=== PATIENT | female | born 1980 | race Caucasian/White ===

== ENCOUNTER 2020-12-17 14:46 | Outpatient (REF) | payer MEDICAID, SELFPAY ==
[2020-12-17 15:04] LABS: COVID-19 Test Positive (Negative); IDNOW Serial# 55D5AD1C
== END 2020-12-17 14:47 | disposition home or self-care (01) ==
LOC: HO.LAB 14:46
PROVIDERS: Visit Provider Internal Medicine
DX: Z20.822 Contact with and (suspected) exposure to COVID-19 (principal)
CPT/HCPCS: 36415; 87635; C9803

== ENCOUNTER 2021-06-06 14:54 | Emergency (ER) | payer MEDICAID, SELFPAY ==
[2021-06-06 15:04] VITALS: BP 120/80; PULSE 84
[2021-06-06 15:06] VITALS: BP 120/56; PULSE 79; RESP 18; TEMP 37.1; O2SAT 99; BMI 26.2
--- NOTE | 2021-06-06 15:18 | ED.RECABL ---
HPI - Recheck/Abnormal Lab/Rx General Chief Complaint: Recheck/Abnormal Lab/Rx Stated Complaint: abnornal labs Time Seen by Provider: 06/06/21 15:03 Related Data Allergies Allergy/AdvReac Type Severity Reaction Status Date / Time ibuprofen [IBUPROFEN] Allergy Mild VOMITING Unverified 05/06/20 16:57 [facility] Social History Social History Advance Directives: No Advance Directives Information Provided: Yes Physical Exam Vital Signs: Vital Signs: Last Vital Signs Temp 98.2 F 06/06/21 20:27 Pulse 62 06/06/21 20:27 Resp 16 06/06/21 20:27 BP 120/73 06/06/21 20:27 Pulse Ox 100 06/06/21 20:27 Body Mass Index 26.2 Course Course Course Narrative: 1515-This is a rapid medical exam. Patient tells me she had labs drawn Sunday by PCP because she has had body aches, chest pain, body swelling , SOB. Called today d/t abnormal labs but unsure what they were. Will call patient PCP Dior Rod and obtain labs as they are not in our system. Deferred additional HPI, ROS and PE to primary provider. MDM - Recheck/Abnormal Lab/Rx Lab Data Result diagrams: 06/06/21 16:23 06/06/21 16:23 Labs: Lab Results 06/06/21 06/06/21 06/06/21 Range/Units 16:23 16:23 16:23 WBC 10.9 H (4.8-10.8) X10*3/uL RBC 3.96 L (4.20-5.50) X10*6/uL Hgb 11.5 L (12.0-16.0) g/dl Hct 34.6 L (37-47) % MCV 87.4 (80-98) fL MCH 29.0 (27.0-33.0) pg MCHC 33.2 (31.0-35.0) g/dl RDW 12.7 (11.0-16.0) % Plt Count 386 (160-400) X10*3/uL MPV 11.1 (9.4-12.3) fL Immature Gran % (Auto) 0.7 H (0.0-0.4) % Neut % (Auto) 62.7 (45-73) % Lymph % (Auto) 26.2 (20-40) % [place] % (Auto) 6.1 (2-11) % Eos % (Auto) 3.9 (0-4) % Baso % (Auto) 0.4 (0-2) % Lymph # (Auto) 2.9 (1.2-4.9) X10*3/uL [place] # (Auto) 0.7 (0.1-1.2) X10*3/uL Eos # (Auto) 0.4 (0.0-0.4) X10*3/uL Baso # (Auto) 0.0 (0.0-0.2) X10*3/uL Abs Immat Gran (auto) 0.08 H (0.00-0.03) X10*3/uL Absolute Neuts (auto) 6.9 (2.0-8.3) X10*3/uL Absolute Nucleated RBC 0.000 (0.0-0.012) X10*3/uL Nucleated RBC % (auto) 0.0 (0.0-0.2) /100WBC Sodium 137 (135-145) mmol/L Potassium 4.4 (3.3-5.1) mmol/L Chloride 105 (96-108) mmol/L Carbon Dioxide 24 (22-29) mmol/L Anion Gap 12 (12-20) BUN 10 (9-16) mg/dL Creatinine 0.69 (0.5-1.4) mg/dL Estim Creat Clear Calc 85.5 Estimated GFR > 60 Random Glucose 92 (60-115) mg/dL Calcium 9.3 (8.4-10.2) mg/dL Total Bilirubin 0.2 (0.0-1.0) mg/dL Direct Bilirubin < 0.2 (0.0-0.5) mg/dL AST 33 H (5-31) U/L ALT 65 H (0-31) U/L Alkaline Phosphatase 74 (39-117) U/L Total Creatine Kinase 65 (26-140) U/L Troponin I High Sens < 3.5 (<3.5-17.0) ng/L B-Natriuretic Peptide 168 H (<100) pg/mL Total Protein 6.6 (6.5-8.0) g/dL Albumin 3.9 (3.5-5.0) g/dL Discharge Plan Discharge Clinical Impression: Abnormal laboratory test Patient Disposition: Home, Self-Care Instructions: Normal Exam (ED) Additional Instructions: Fue evaluado por valor de laboratorio anormal. Probamos santoro CBC, Chem 7, paneles hep?ticos y BNP. Keke valores de laboratorio son relativamente normales. Santoro H&H 11.5 / 34.6, que es anemia leve y bourgeois sido cr?debbie desde 2019, y santoro BNP fue 168. El valor normal es 100. No pude encontrar kacy?n valor de laboratorio anormal significativo. Natalie un seguimiento con santoro m?dico de atenci?n primaria para realizar m?s estudios. Samantha por elegir dana departamento de emergencias para santoro evaluaci?n. Natalie un seguimiento con santoro m?dico de atenci?n primaria seg?n sea necesario. Regrese al departamento de emergencias por cualquier s?ntoma nuevo, preocupante o que empeore. You were evaluated for abnormal lab value. We tested your CBC, Chem 7, liver panels, and BNP. Your lab values are relatively normal. Your H&H 11.5/34.6 which is mild anemia and has been chronic since 2019, and her BNP was 168. Normal value is 100. I could not find any significant abnormal lab value. Please follow-up with your primary care physician for further workup Thank you for choosing this emergency department for evaluation. Please follow-up with primary care physician as needed. Return to the emergency department for any new, concerning, or worsening symptoms. Stand Alone Forms: Work/School Release Discharge Date/Time: 06/06/21 21:12
--- NOTE | 2021-06-06 15:20 | PC.NURSE ---
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 Also endorses loss of taste, states had negative COVID test
--- NOTE | 2021-06-06 15:22 | ECG_ITS ---
Test Reason : ABNORMAL/RECHECK Blood Pressure : / mmHG Vent. Rate : 065 BPM Atrial Rate : 065 BPM P-R Int : 166 ms QRS Dur : 080 ms QT Int : 388 ms P-R-T Axes : 023 060 062 degrees QTc Int : 403 ms Normal sinus rhythm Early repolarization Normal ECG Sinus Arrhythmia is no longer Present Referred By: Sola Marmolejo Electronically Signed By:SAMEERA CARMONA MD
[2021-06-06 16:37] LABS: MANUAL DIFF FLAG NO
[2021-06-06 16:41] LABS: Basophils Percent Auto 0.4 % (0-2); Eosinophils Absolute Auto 0.4 X10*3/uL (0.0-0.4); Eosinophils Percent Auto 3.9 % (0-4); Hematocrit 34.6 % (37-47); Hemoglobin 11.5 g/dl (12.0-16.0); Imm Gran Abs Auto 0.08 X10*3/uL (0.00-0.03); Imm Gran Pct Auto 0.7 % (0.0-0.4); Lymphocytes Absolute Auto 2.9 X10*3/uL (1.2-4.9); Lymphocytes Percent Auto 26.2 % (20-40); Mean Corpuscular HGB Conc 33.2 g/dl (31.0-35.0); Mean Corpuscular Volume 87.4 fL (80-98); Mean Platelet Volume 11.1 fL (9.4-12.3); Monocytes Absolute Auto 0.7 X10*3/uL (0.1-1.2); Monocytes Percent Auto 6.1 % (2-11); Neutrophils Absolute Auto 6.9 X10*3/uL (2.0-8.3); Neutrophils Percent Auto 62.7 % (45-73); Platelet Count 386 X10*3/uL (160-400); Red Blood Count 3.96 X10*6/uL (4.20-5.50); Red Cell Distribution Width 12.7 % (11.0-16.0); White Blood Count 10.9 X10*3/uL (4.8-10.8)
[2021-06-06 16:53] LABS: Alanine Aminotransferase 65 U/L (0-31); Albumin Level 3.9 g/dL (3.5-5.0); Alkaline Phosphatase 74 U/L (39-117); Anion Gap 12 (12-20); Aspartate Amino Transferase 33 U/L (5-31); Bilirubin Direct < 0.2 mg/dL (0.0-0.5); Bilirubin Total 0.2 mg/dL (0.0-1.0); Blood Urea Nitrogen 10 mg/dL (9-16); Calcium 9.3 mg/dL (8.4-10.2); Carbon Dioxide 24 mmol/L (22-29); Chloride 105 mmol/L (96-108); Creatinine Clr Calc Pharmacy 85.5; Estimated Glomerular Filt Rate > 60; Glucose Random 92 mg/dL (60-115); Potassium 4.4 mmol/L (3.3-5.1); Sodium 137 mmol/L (135-145); Total Protein 6.6 g/dL (6.5-8.0)
[2021-06-06 16:58] LABS: B Type Natriuretic Peptide 168 pg/mL (<100); Troponin-I High Sensitivity < 3.5 ng/L (<3.5-17.0)
--- NOTE | 2021-06-06 20:02 | ED_ITS ---
HPI - Recheck/Abnormal Lab/Rx General Chief Complaint: Recheck/Abnormal Lab/Rx Stated Complaint: abnornal labs Time Seen by Provider: 06/06/21 15:03 Source: patient Mode of arrival: ambulatory Limitations: language barrier History of Present Illness HPI narrative: 40-year-old female presents to emergency department for an abnormal lab value. Her primary care physician called and updated her that 1 of her lab values is abnormal, but she does not know which 1 it is. complaint: abnormal lab Returns today for: called because of abnormal lab/test Symptoms since prior visit: no new symptoms Context: called for abnormal lab result Associated symptoms: none Related Data Allergies Allergy/AdvReac Type Severity Reaction Status Date / Time ibuprofen [IBUPROFEN] Allergy Mild VOMITING Unverified 05/06/20 16:57 Review of Systems Review of Systems: Constitutional: No Fever, No Chills ENT/Mouth: No Ear Pain, No Hoarseness, No sore throat Eyes: No Eye Pain, No Swelling, No Redness, No Foreign Body Cardiovascular: No Chest Pain, No SOB Respiratory: No Cough, No Dyspnea Gastrointestinal: No Nausea, No Vomiting, No Diarrhea, No abdominal Pain Genitourinary: No Dysuria, No Hematuria Musculoskeletal: No joint pain, No Myalgias, No Joint Swelling Skin: No Skin lacerations, No rash Neuro: No Weakness, No Numbness, No Paresthesias, No Loss of Consciousness, No Dizziness, No Headache Psych: No Anxiety/Panic, No Depression Heme/Lymph: no easy bruising, no Lymphadenopathy Endocrine: No Polyuria, No Polydipsia Yes all other systems are reviewed and are negative [facility] Past Medical History Attestation statement: The following information was validated with the patient. Source: old records reviewed Social History Social History Advance Directives: No Advance Directives Information Provided: Yes Physical Exam Vital Signs: Vital Signs: Last Vital Signs Temp 98.2 F 06/06/21 20:27 Pulse 62 06/06/21 20:27 Resp 16 06/06/21 20:27 BP 120/73 06/06/21 20:27 Pulse Ox 100 06/06/21 20:27 Body Mass Index 26.2 Appearance: Alert. Oriented X3. No acute distress. Eyes: Pupils equal, round and reactive to light. ENT: Pharynx normal. Neck: Normal inspection. Neck supple. CVS: Normal heart rate and rhythm. Pulses normal. Respiratory: No respiratory distress. Breath sounds normal. Abdomen: Soft and nontender. Skin: Skin warm and dry. Normal skin color. Normal skin turgor. Extremities: No lower extremity edema. Gait well balanced well coordinated. Neuro: No motor deficit. No sensory deficit. Cranial nerves 2-12 intact. Course Course Course Narrative: 40-year-old female presented for an unknown abnormal lab value. She was called by her primary care physician to present to the emergency department. While patient was in the emergency department waiting room we ran CBC, Chem 7, EKG, troponin, LFTs, creatine kinase, and BNP. All other lab values were unremarkable. She does have an H&H of 11.5/34.6 which has been chronic since 2019. BNP is 168, she has no edema and lung sounds are clear. Does not appear to be in fluid overload. AST minimally elevated at 33, ALT at 65. No indication of pancreatitis or acute abdomen on physical exam. Patient states to feel well. No complaints at this time. Will discharge home. Patient understands she must follow-up with her primary care physician for further workup. 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 Will translate utilized for discharge instructions. Patient verbalized understanding of and agrees to plan of care discharge home MDM - Recheck/Abnormal Lab/Rx MDM Narrative Medical decision making narrative: Encounter for abnormal lab value Medical Records Attestation: I reviewed the patient's medical records. Lab Data Attestation: I reviewed the patient's lab results. Result diagrams: 06/06/21 16:23 06/06/21 16:23 Labs: Lab Results 06/06/21 06/06/21 06/06/21 Range/Units 16:23 16:23 16:23 WBC 10.9 H (4.8-10.8) X10*3/uL RBC 3.96 L (4.20-5.50) X10*6/uL Hgb 11.5 L (12.0-16.0) g/dl Hct 34.6 L (37-47) % MCV 87.4 (80-98) fL MCH 29.0 (27.0-33.0) pg MCHC 33.2 (31.0-35.0) g/dl RDW 12.7 (11.0-16.0) % Plt Count 386 (160-400) X10*3/uL MPV 11.1 (9.4-12.3) fL Immature Gran % (Auto) 0.7 H (0.0-0.4) % Neut % (Auto) 62.7 (45-73) % Lymph % (Auto) 26.2 (20-40) % [place] % (Auto) 6.1 (2-11) % Eos % (Auto) 3.9 (0-4) % Baso % (Auto) 0.4 (0-2) % Lymph # (Auto) 2.9 (1.2-4.9) X10*3/uL [place] # (Auto) 0.7 (0.1-1.2) X10*3/uL Eos # (Auto) 0.4 (0.0-0.4) X10*3/uL Baso # (Auto) 0.0 (0.0-0.2) X10*3/uL Abs Immat Gran (auto) 0.08 H (0.00-0.03) X10*3/uL Absolute Neuts (auto) 6.9 (2.0-8.3) X10*3/uL Absolute Nucleated RBC 0.000 (0.0-0.012) X10*3/uL Nucleated RBC % (auto) 0.0 (0.0-0.2) /100WBC Sodium 137 (135-145) mmol/L Potassium 4.4 (3.3-5.1) mmol/L Chloride 105 (96-108) mmol/L Carbon Dioxide 24 (22-29) mmol/L Anion Gap 12 (12-20) BUN 10 (9-16) mg/dL Creatinine 0.69 (0.5-1.4) mg/dL Estim Creat Clear Calc 85.5 Estimated GFR > 60 Random Glucose 92 (60-115) mg/dL Calcium 9.3 (8.4-10.2) mg/dL Total Bilirubin 0.2 (0.0-1.0) mg/dL Direct Bilirubin < 0.2 (0.0-0.5) mg/dL AST 33 H (5-31) U/L ALT 65 H (0-31) U/L Alkaline Phosphatase 74 (39-117) U/L Total Creatine Kinase 65 (26-140) U/L Troponin I High Sens < 3.5 (<3.5-17.0) ng/L B-Natriuretic Peptide 168 H (<100) pg/mL Total Protein 6.6 (6.5-8.0) g/dL Albumin 3.9 (3.5-5.0) g/dL ECG Data Attestation: I personally reviewed and interpreted this ECG as follows: ECG interpretation date: 06/06/21 ECG interpretation time: 20:32 Prior ECG tracings: not available for review Interpretation: Ventricular rate 65 beats per minute, WA 166, QRS 80, QTC 388, QTC 403 normal sinus rhythm normal EKG prior EKGs unavailable secondary to system 130 error Discharge Plan Discharge Clinical Impression: Abnormal laboratory test Patient Disposition: Home, Self-Care Instructions: Normal Exam (ED) Additional Instructions: Fue evaluado por valor de laboratorio anormal. Probamos overton CBC, Chem 7, paneles hep?ticos y BNP. Keke valores de laboratorio son relativamente normales. Overton H&H 11.5 / 34.6, que es anemia leve y bourgeois sido cr?debbie desde 2019, y overton BNP fue 168. El valor normal es 100. No pude encontrar kacy?n valor de laboratorio anormal significativo. Natalie un seguimiento con overton m?dico de atenci?n primaria para realizar m?s estudios. Samantha por elegir dana departamento de emergencias para overton evaluaci?n. Natalie un seguimiento con overton m?dico de atenci?n primaria seg?n sea necesario. Regrese al departamento de emergencias por cualquier s?ntoma nuevo, preocupante o que empeore. You were evaluated for abnormal lab value. We tested your CBC, Chem 7, liver panels, and BNP. Your lab values are relatively normal. Your H&H 11.5/34.6 which is mild anemia and has been chronic since 2019, and her BNP was 168. Normal value is 100. I could not find any significant abnormal lab value. Please follow-up with your primary care physician for further workup Thank you for choosing this emergency department for evaluation. Please follow-up with primary care physician as needed. Return to the emergency department for any new, concerning, or worsening symptoms.
[2021-06-06 20:27] VITALS: BP 120/73; PULSE 62; RESP 16; TEMP 36.8; O2SAT 100
== END 2021-06-06 21:12 | disposition home or self-care (01) ==
PROVIDERS: Nurse Practitioner Family; Emergency Provider Internal Medicine; PCP Internal Medicine
DX: R79.89 Other specified abnormal findings of blood chemistry (principal); Z79.899 Other long term (current) drug therapy
CPT/HCPCS: 36415; 80048; 80076; 82550; 83880; 84484; 85025; 93005; 99283

== ENCOUNTER 2021-08-26 13:04 | Outpatient (REF) | payer MEDICAID, SELFPAY ==
[2021-08-26 14:15] LABS: Binax Internal Control QC Valid; Binax Now Covid-19 Ag Negative (Negative)
== END 2021-08-26 13:05 | disposition home or self-care (01) ==
LOC: HO.LAB 13:04
PROVIDERS: Visit Provider Internal Medicine
DX: Z20.822 Contact with and (suspected) exposure to COVID-19 (principal)
CPT/HCPCS: 36415; C9803

== ENCOUNTER 2023-04-17 17:52 | Outpatient (REF) | payer MEDICAID, SELFPAY ==
[2023-04-18 11:37] LABS: CT PCR NOT DETECTED (Not Detect.); NG PCR NOT DETECTED (Not Detect.)
[2023-04-18 14:04] LABS: BV Int Neg Control Negative (Negative); BV Int Pos Control Positive (Positive)
[2023-04-20 22:18] LABS: HPV mRNA E6/E7 rflx Not Detected (Not Detected)
== END 2023-04-17 17:53 | disposition home or self-care (01) ==
LOC: HO.HHCLNP 17:52
PROVIDERS: Visit Provider Internal Medicine
DX: Z01.419 Encounter for gynecological examination (general) (routine) without abnormal findings (principal); Z20.2 Contact with and (suspected) exposure to infections with a predominantly sexual mode of transmission
CPT/HCPCS: 0353U; 87480; 87510; 87624; 87660; 88142

== ENCOUNTER 2023-09-27 16:13 | Emergency (ER) | payer MEDICAID, SELFPAY ==
--- NOTE | 2023-09-27 | ECG_ITS ---
Test Reason : CP Blood Pressure : / mmHG Vent. Rate : 074 BPM Atrial Rate : 074 BPM P-R Int : 168 ms QRS Dur : 084 ms QT Int : 390 ms P-R-T Axes : 043 056 070 degrees QTc Int : 432 ms Normal sinus rhythm Normal ECG When compared with ECG of 06-JUN-2021 20:23, T wave amplitude has decreased in Anterolateral leads Referred By: Generic ED Physician Electronically Signed By:DIANA HERRERA
--- NOTE | ~2023-09-27 | XR_ITS ---
EXAMINATION: XR CHEST CLINICAL INFORMATION: Chest pain, shortness of breath. COMPARISON: Chest radiograph 12/31/2017. TECHNIQUE: PA view of the chest was obtained. FINDINGS: Normal heart size. No focal airspace opacities, pleural effusion or pneumothorax. No acute osseous findings. Right upper quadrant surgical clips. Nonspecific gastric and colonic distention in the left upper quadrant. XR/XR chest 1V IMPRESSION: 1. No acute cardiopulmonary findings. 2. Nonspecific gaseous distention of the stomach and colon in the left upper quadrant. Further evaluation with abdominal radiograph as clinically warranted.
--- NOTE | 2023-09-27 17:35 | ED_ITS ---
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 She reports that she has had upper respiratory congestion and for the last few days. She states that today while watching TV she had a sudden onset of chest pain and shortness of breath Therefore she called an ambulance and was brought to the ER. At the time my evaluation the patient reports still with chest pain and palpitations. She states she feels that her heart is racing Patient reports this has never happened past No other complaints or concerns at this time Related Data Allergies Allergy/AdvReac Type Severity Reaction Status Date / Time ibuprofen [IBUPROFEN] Allergy Mild VOMITING Unverified 05/06/20 16:57 Review of Systems 2 Constitutional: Constitutional: Denies body ache(s), Denies fever(s) and Denies headache(s) ENT: Denies headache(s), Reports nasal discharge, Denies sinus pain and Denies sinus pressure Cardiovascular: Cardiovascular: Reports chest pain, Reports rapid heart rate, Reports palpitations and Reports dyspnea Respiratory: Respiratory: Denies cough and Reports dyspnea Musculoskeletal: Musculoskeletal: Reports back pain Integumentary/Breasts: Skin/Breast: Denies rash Neurologic: Denies headache(s) Endocrine: Endocrine: Reports palpitations PMFSH Social History Social History Smoked in Last 30 Days: No Use of substances other than those prescribed or required for medical reasons: No Advance Directives: No Advance Directives Information Provided: No Physical Exam 2 Vital Signs: Vital Signs: Last Vital Signs Temp 98.2 F 09/27/23 17:36 Pulse 71 09/27/23 22:13 Resp 16 09/27/23 22:13 BP 115/67 09/27/23 22:13 Pulse Ox 98 09/27/23 22:13 O2 Del Method Room Air 09/27/23 22:13 BMI result Body Mass Index 25.0 Const: General: healthy appearing, comfortable, no acute distress, alert and awake Nutritional Appearance: well nourished Orientation/consciousness: p atient oriented x3 HEENT: Head: Yes normocephalic and Yes atraumatic Eyes: Eyelids: Yes eyelids normal Conjunctivae: conjunctivae normal S clerae: sclerae normal Corneas: corneas normal Pupils: Equal, round and reactive pupils present EOM: EOMs intact bilaterally Neck: Neck: Yes full ROM Resp: Effort & Inspection: normal respiratory effort, able to speak in complete sentences, no audible wheezes and not labored Auscultation: clear to auscultation bilaterally Cardio: Rate: regular rate Rhythm: regular rhythm Skin: General skin exam: elasticity normal Neuro: General: patient oriented x3 Cranial nerves: Yes Equal, round and reactive pupils present and Yes Bilaterally intact EOM present Cognition (Neuro): normal cognition Course Course Course Narrative: RME: via EMS: shortness of breath and chest pain starting 1 hour prior to arrival. Hx asthma uses an inhaler. Denies fever Has not tested for URI Medical Decision Making Medical Decision Making MDM Narrative: 43-year-old female presents for evaluation of chest pain, congestion. Her workup in the ER was reassuring. Her EKG is normal sinus rhythm with a rate of 74 beats per minute. Ischemic change in the EKG patient's labs are reviewed without any concerning abnormalities. No significant electrolyte abnormalities. Patient's troponin is negative. Very slight increase in ALT however the patient has no abdominal pain, nausea or vomiting. Patient's viral swabs are negative. Chest x-ray is clear. While I am talking to the patient she reports having palpitations despite her cardiac monitoring reassuring no ectopy or arrhythmia. This patient's symptoms may be related to anxiety causing her chest pain. She will be discharged with recommendations for [id number]-mipalfu decongestant such as Claritin Differential Diagnosis Differential Diagnoses: The differential diagnosis associated with the presentation includes Upper respiratory infection Viral syndrome Chest pain Costochondritis ACS less likely COVID-[address] [facility] Lab Attestation statement: I reviewed the patient's lab results. see above 09/27/23 18:50 09/27/23 18:50 Labs: Lab Results 09/27/23 09/27/23 Range/Units 18:50 18:53 WBC 6.9 (4.8-10.8) X10*3/uL RBC 4.54 (4.20-5.50) X10*6/uL Hgb 12.9 (12.0-16.0) g/dl Hct 39.2 (37.0-47.0) % MCV 86.3 (80.0-98.0) fL MCH 28.4 (27.0-33.0) pg MCHC 32.9 (31.0-35.0) g/dl RDW 12.8 (11.0-16.0) % Plt Count 245 (160-400) X10*3/uL MPV 10.8 (9.4-12.3) fL Immature Gran % (Auto) 0.1 (0.0-0.4) % Neut % (Auto) 63.2 (45-73) % Lymph % (Auto) 23.1 (20-40) % [place] % (Auto) 5.7 (2-11) % Eos % (Auto) 7.3 H (0-4) % Baso % (Auto) 0.6 (0-2) % Lymph # (Auto) 1.6 (1.2-4.9) X10*3/uL [place] # (Auto) 0.4 (0.1-1.2) X10*3/uL Eos # (Auto) 0.5 H (0.0-0.4) X10*3/uL Baso # (Auto) 0.0 (0.0-0.2) X10*3/uL Abs Immat Gran (auto) 0.01 (0.00-0.03) X10*3/uL Absolute Neuts (auto) 4.3 (2.0-8.3) x10*3/uL Absolute Nucleated RBC 0.000 (0.0-0.012) X10*3/uL Nucleated RBC % (auto) 0.0 (0.0-0.2) /100WBC Sodium 140 (135-145) mmol/L Potassium 4.2 (3.3-5.1) mmol/L Chloride 107 (96-108) mmol/L Carbon Dioxide 26 (22-29) mmol/L Anion Gap 11 L (12-20) BUN 12 (9-16) mg/dL Creatinine 0.75 (0.5-1.4) mg/dL Estim Creat Clear Calc 77.9 Estimated GFR > 60 Random Glucose 93 (60-115) mg/dL Calcium 9.5 (8.4-10.2) mg/dL Total Bilirubin 0.3 (0.0-1.0) mg/dL AST 29 (5-31) U/L ALT 45 H (0-31) U/L Alkaline Phosphatase 105 (39-117) U/L Troponin I High Sens 6.3 (<3.5-17.0) ng/L Total Protein 7.4 (6.5-8.0) g/dL Albumin 4.2 (3.5-5.0) g/dL COVID-19 (BURAK) Negative (Negative) COVID-19 Clin Com See Note Influenza Type A (DAVID) Negative (Negative) Influenza Type B (DAVID) Negative (Negative) Influenza A & B Note See Note Independent Interpretation I performed an independent interpretation of an: EKG (See above) and Plain X-Ray (No focal infiltrates. Agree with Radiology interpretation) Radiology Impression Discussion of test interpretation with radiology: I have reviewed the radiologist's reading. (Distended stomach of unclear etiology) Discharge Plan Discharge Clinical Impression: Acute upper respiratory infection Patient Disposition: Home, Self-Care Instructions: Upper Respiratory Infection (ED) Additional Instructions: Your workup in the ER today was reassuring. This includes your EKG, chest x-ray and blood work You tested negative for COVID and influenza You may use an [id number] decongestant Interventions: ED Discharge Assessment Last Done: 09/27/23 22:13 Discharge Date/Time: 09/27/23 22:14
[2023-09-27 17:36] VITALS: BP 128/73; PULSE 84; RESP 16; TEMP 36.8; O2SAT 99; BMI 25.0
[2023-09-27 18:55] LABS: MANUAL DIFF FLAG NO
[2023-09-27 18:56] LABS: Basophils Percent Auto 0.6 % (0-2); Eosinophils Absolute Auto 0.5 X10*3/uL (0.0-0.4); Eosinophils Percent Auto 7.3 % (0-4); Hematocrit 39.2 % (37.0-47.0); Hemoglobin 12.9 g/dl (12.0-16.0); Imm Gran Abs Auto 0.01 X10*3/uL (0.00-0.03); Imm Gran Pct Auto 0.1 % (0.0-0.4); Lymphocytes Absolute Auto 1.6 X10*3/uL (1.2-4.9); Lymphocytes Percent Auto 23.1 % (20-40); Mean Corpuscular HGB Conc 32.9 g/dl (31.0-35.0); Mean Corpuscular Hemoglobin 28.4 pg (27.0-33.0); Mean Corpuscular Volume 86.3 fL (80.0-98.0); Mean Platelet Volume 10.8 fL (9.4-12.3); Monocytes Absolute Auto 0.4 X10*3/uL (0.1-1.2); Monocytes Percent Auto 5.7 % (2-11); Neutrophils Absolute Auto 4.3 x10*3/uL (2.0-8.3); Neutrophils Percent Auto 63.2 % (45-73); Platelet Count 245 X10*3/uL (160-400); Red Blood Count 4.54 X10*6/uL (4.20-5.50); Red Cell Distribution Width 12.8 % (11.0-16.0); White Blood Count 6.9 X10*3/uL (4.8-10.8)
[2023-09-27 19:13] LABS: COVID-19 Test Negative (Negative); IDNOW Serial# 08D9AD1C; IDNOW Serial# 152EDE1D; Influenza A Negative (Negative); Influenza B2 Negative (Negative)
[2023-09-27 19:16] LABS: Alanine Aminotransferase 45 U/L (0-31); Albumin Level 4.2 g/dL (3.5-5.0); Alkaline Phosphatase 105 U/L (39-117); Anion Gap 11 (12-20); Aspartate Amino Transferase 29 U/L (5-31); Bilirubin Total 0.3 mg/dL (0.0-1.0); Blood Urea Nitrogen 12 mg/dL (9-16); Calcium 9.5 mg/dL (8.4-10.2); Carbon Dioxide 26 mmol/L (22-29); Chloride 107 mmol/L (96-108); Creatinine Clr Calc Pharmacy 77.9; Estimated Glomerular Filt Rate > 60; Glucose Random 93 mg/dL (60-115); Potassium 4.2 mmol/L (3.3-5.1); Sodium 140 mmol/L (135-145); Total Protein 7.4 g/dL (6.5-8.0)
[2023-09-27 21:00] VITALS: BP 110/62; PULSE 77; RESP 16; O2SAT 98
[2023-09-27 21:24] LABS: Troponin-I High Sensitivity 6.3 ng/L (<3.5-17.0)
[2023-09-27 22:13] VITALS: BP 115/67; PULSE 71; RESP 16; O2SAT 98
== END 2023-09-27 22:14 | disposition home or self-care (01) ==
PROVIDERS: Nurse Practitioner Family; Emergency Provider Emergency Medicine
DX: J06.9 Acute upper respiratory infection, unspecified (principal); R07.89 Other chest pain; R06.02 Shortness of breath; Z11.52 Encounter for screening for COVID-19; Z79.899 Other long term (current) drug therapy
CPT/HCPCS: 36415; 71045; 80053; 84484; 85025; 87502; 87635; 93005; 99283; 99285

== ENCOUNTER → 2023-09-27 20:41 | Outpatient (BNV) | payer MEDICAID, SELFPAY | PROVIDERS: Emergency Provider Emergency Medicine; Visit Provider Internal Medicine | DX: R07.9 Chest pain, unspecified (principal) | CPT/HCPCS: 93010 ==

== ENCOUNTER 2024-05-26 02:52 | Emergency (ER) | payer MEDICAID, SELFPAY ==
--- NOTE | 2024-05-26 | ECG_ITS ---
Test Reason : abdominal pain Blood Pressure : / mmHG Vent. Rate : 074 BPM Atrial Rate : 074 BPM P-R Int : 138 ms QRS Dur : 076 ms QT Int : 402 ms P-R-T Axes : 009 052 067 degrees QTc Int : 446 ms Normal sinus rhythm Minimal voltage criteria for LVH, may be normal variant ( Sokolow-Haywood ) Nonspecific T wave abnormality Abnormal ECG When compared with ECG of 27-SEP-2023 20:41, Nonspecific T wave abnormality now evident in Anterior leads Referred By: Generic ED Physician Electronically Signed By:MICHELA BOYCE
[2024-05-26 02:55] VITALS: BP 130/82; PULSE 72; O2SAT 99
[2024-05-26 03:09] VITALS: BP 124/59; PULSE 68; RESP 18; TEMP 36.9; O2SAT 100
[2024-05-26 03:15] VITALS: BP 124/59; PULSE 68; RESP 18; TEMP 36.9; O2SAT 100; BMI 24.8
[2024-05-26 03:33] LABS: MANUAL DIFF FLAG NO
[2024-05-26 03:34] LABS: Basophils Percent Auto 0.2 % (0-2); Hematocrit 38.3 % (37.0-47.0); Hemoglobin 13.1 g/dl (12.0-16.0); Imm Gran Abs Auto 0.03 X10*3/uL (0.00-0.03); Imm Gran Pct Auto 0.2 % (0.0-0.4); Lymphocytes Absolute Auto 1.1 X10*3/uL (1.2-4.9); Lymphocytes Percent Auto 8.5 % (20-40); Mean Corpuscular HGB Conc 34.2 g/dl (31.0-35.0); Mean Corpuscular Hemoglobin 27.8 pg (27.0-33.0); Mean Corpuscular Volume 81.3 fL (80.0-98.0); Mean Platelet Volume 10.6 fL (9.4-12.3); Monocytes Absolute Auto 0.2 X10*3/uL (0.1-1.2); Monocytes Percent Auto 1.6 % (2-11); Neutrophils Absolute Auto 11.8 x10*3/uL (2.0-8.3); Neutrophils Percent Auto 89.5 % (45-73); Platelet Count 353 X10*3/uL (160-400); Red Blood Count 4.71 X10*6/uL (4.20-5.50); Red Cell Distribution Width 13.1 % (11.0-16.0); White Blood Count 13.1 X10*3/uL (4.8-10.8)
[2024-05-26 03:51] LABS: Alanine Aminotransferase 17 U/L (0-31); Alkaline Phosphatase 112 U/L (39-117); Anion Gap 18 (12-20); Aspartate Amino Transferase 18 U/L (5-31); Bilirubin Total 0.3 mg/dL (0.0-1.0); Blood Urea Nitrogen 14 mg/dL (9-16); Calcium 10.4 mg/dL (8.4-10.2); Carbon Dioxide 22 mmol/L (22-29); Chloride 101 mmol/L (96-108); Creatinine Clr Calc Pharmacy 73.7; Estimated Glomerular Filt Rate > 60; Glucose Random 154 mg/dL (60-115); Lipase 53 U/L (8-78); Potassium 3.7 mmol/L (3.3-5.1); Sodium 137 mmol/L (135-145); Total Protein 8.8 g/dL (6.5-8.0)
[2024-05-26] MEDS: Ondansetron ODT 4 MG TAB.RAPDIS TRANSLINGU (03:54)
[2024-05-26 04:01] LABS: HCG Quantitative < 2 mIU/mL
[2024-05-26 04:48] VITALS: BP 134/62; PULSE 71; RESP 15; TEMP 36.8; O2SAT 100
--- NOTE | 2024-05-26 04:49 | MHC.EDTECH ---
Pt was changed over into a hospital gown. upon return to check pt vital signs pt dressed back into her robe and refuses to put on the hospital gown
[2024-05-26 05:02] LABS: Appearance Urine Cloudy; Color Urine Yellow; Glucose Urine UA 250 mg/dL (Negative); Leukocyte Esterase Urine Trace (Negative); Nitrite Urine Negative (Negative); PH 6.5 (5.0-9.0); Specific Gravity - Urine >= 1.030 (1.005-1.025); UMIC TRIGGER UACC YES; Urine Blood Negative (Negative); Urine Ketones >=160 mg/dL (Negative); Urine Protein 30 (1+) mg/dL (Neg-Trace)
[2024-05-26 05:15] LABS: Bacteria Urine Trace (None Seen); Hyaline Casts Urine 0-2 /LPF (0-2); WBC Urine 0-5 /HPF (0-5)
--- NOTE | 2024-05-26 07:10 | ED.NAVMDI ---
HPI - Nausea/Vomiting/Diarrhea General Chief complaint: Abdominal Pain Stated complaint: ABDOMINAL PAIN/VOMITTING Time Seen by Provider: 05/26/24 07:03 Source: patient, EMS and old records reviewed Mode of arrival: EMS Limitations: no limitations History of Present Illness ED Provider: ANDREW ERIC Narrative: 43 yo female with PMH of cyclical vomiting syndrome here with c/o 24 hours of upper abdominal pain and n/v states she gets this frequently takes no medications for it. She sees her doctor annually. She just deals with it. Denies drug use to me. States she has no known triggers. She states pain radiates to lower back. She only has hx of gastritis. Did have in past. MD elicited complaint: nausea, vomiting and abdominal pain Pertinent past history: cyclical vomiting Onset (ago): hour(s) (24) Description of vomiting: food contents and watery Associated nausea: Yes Associated abdominal pain: Yes Location of pain: epigastric Radiation: left flank and right flank Pain consistency: constant Severity: severe Quality: aching Exacerbating factors: eating and movement Relieving factors: none Context: other Associated symptoms: loss of appetite, malaise, nausea/vomiting, weakness and anxiety Related Data Previous Rx's ?Medication ?Instructions ?Recorded ondansetron 4 mg disintegrating 4 mg PO Q8H PRN nausea and 05/26/24 tablet vomiting #20 tabs Allergies Allergy/AdvReac Type Severity Reaction Status Date / Time ibuprofen [IBUPROFEN] Allergy Mild VOMITING Verified 05/26/24 03:18 Review of Systems Review of Systems: Constitutional : No Weight loss, No Fever, No Chills ENT/Mouth : No sore throat, No Rhinorrhea Eyes: No Swelling, No Redness Cardiovascular : No Chest Pain, No SOB, NoEdema Respiratory : No Cough, No Sputum, No Wheezing Gastrointestinal : Positive Nausea, Positive Vomiting, no Diarrhea, positive abdominal Pain, No Hematochezia, No Melena Genitourinary : No Dysuria, No Urinary Frequency, No Hematuria, No Urgency Musculoskeletal : No joint pain, No Myalgias, No Joint Swelling Skin : No Skin Lesions, No rash Neuro : No Weakness, No Numbness, No Dizziness, No Headache Psych : pos Anxiety/Panic, No Depression All other systems reviewed and are negative. Gastrointestinal: Gastrointestinal: Reports nausea PMFSH Past Medical History Attestation statement: The following information was validated with the patient. Source: old records reviewed Medical History Cyclical vomiting Gastritis Surgical History Previous section Social History Social History (Updated 05/26/24 @ 07:47 by Ratna Harris DO) Patient Tobacco Use Status: Tobacco use Unknown Advance Directives: No Advance Directives Information Provided: Yes Do you have a plan to hurt others: No Plan Physical Exam Vital Signs: Vital Signs: Last Vital Signs Temp 98.2 F 05/26/24 04:48 Pulse 71 05/26/24 04:48 Resp 15 05/26/24 04:48 BP 134/62 05/26/24 04:48 Pulse Ox 100 05/26/24 04:48 O2 Del Method Room Air 05/26/24 04:48 BMI result Body Mass Index 24.8 Appearance: Alert. Oriented X3. Mild acute distress. Eyes: Pupils equal, round and reactive to light. ENT: Pharynx dry MM Neck: Normal inspection. Neck supple. CVS: Normal heart rate and rhythm. Pulses normal. Respiratory: No respiratory distress. Breath sounds normal. Abdomen: Soft and moderate epigastric ttp no rebound or guarding Skin: Skin warm and dry. pale skin color. Normal skin turgor. Extremities: No lower extremity edema. Neuro: Oriented X 3. No motor deficit. No sensory deficit. Course Course Course Narrative: admits to opiate withdrawal - will start on methadone 40mg as per her request Medications Administered Discontinued Medications Generic Name Dose Route Start Last Admin Trade Name Pooja PRN Reason Stop Dose Admin Droperidol 1.25 mg 05/26/24 07:09 05/26/24 07:32 Droperidol 5 Mg/2 Ml Vial IVPUSH 05/26/24 07:10 1.25 mg ONCE ONE Administration Sodium Chloride 1,000 mls @ 999 mls/hr 05/26/24 07:09 05/26/24 07:32 Ns IV 05/26/24 08:09 999 mls/hr .Q1H1M ONE Administration Sodium Chloride 1,000 mls @ 999 mls/hr 05/26/24 07:09 05/26/24 09:48 Ns IV 05/26/24 08:09 Infused .Q1H1M ONE Infusion Sodium Chloride 1,000 mls @ 999 mls/hr 05/26/24 07:14 05/26/24 09:48 Ns IV 05/26/24 08:14 999 mls/hr .Q1H1M ONE Administration Lorazepam 1 mg 05/26/24 07:09 05/26/24 07:33 Lorazepam 2 Mg/Ml Vial IVPUSH 05/26/24 07:10 1 mg STAT STA Administration Methadone HCl 40 mg 05/26/24 08:51 05/26/24 09:46 Methadone Hcl 20 Mg/2 Ml Oral.Conc PO 05/26/24 08:52 40 mg ONCE ONE Administration Ondansetron HCl 4 mg 05/26/24 03:46 05/26/24 03:54 Ondansetron Odt 4 Mg Tab.Rapdis TRANSLINGU 05/26/24 03:47 4 mg ONCE ONE Administration Medical Decision Making Medical Decision Making [facility] Narrative: 43 yo female with PMH of cyclical vomiting syndrome here with c/o recurrent bout typical of her attacks states she gets this all time unknown trigger at this time she appears dehydrated will start on 3L of IVF, IV ativan, droperidol and obtain EKG and basic labs. She has no localized abdominal pain and states she has similar attacks all the time. Pending resolution of symptoms will then DC home with medications and GI consult. Differential Diagnosis Differential Diagnoses: The differential diagnosis associated with the presentation includes gastritis, cyclical vomiting, dehydration Admission/Observation Consideration of admission/observation: Escalation of care including admission/observation considered feels much better hydrated, tolerating PO addiction saw patient and she is going to [facility] Consult Healthcare Provider Management of the patient was discussed with: Irrigationist (dorie OVIEDO) Lab Data [facility] Lab Attestation statement: I reviewed the patient's lab results. + opiates in urine she is likely in opiate withdrawal at this time 05/26/24 03:28 05/26/24 03:28 Labs: Lab Results 05/26/24 05/26/24 Range/Units 03:28 04:54 WBC 13.1 H (4.8-10.8) X10*3/uL RBC 4.71 (4.20-5.50) X10*6/uL Hgb 13.1 (12.0-16.0) g/dl Hct 38.3 (37.0-47.0) % MCV 81.3 (80.0-98.0) fL MCH 27.8 (27.0-33.0) pg MCHC 34.2 (31.0-35.0) g/dl RDW 13.1 (11.0-16.0) % Plt Count 353 D (160-400) X10*3/uL MPV 10.6 (9.4-12.3) fL Immature Gran % (Auto) 0.2 (0.0-0.4) % Neut % (Auto) 89.5 H (45-73) % Lymph % (Auto) 8.5 L (20-40) % [place] % (Auto) 1.6 L (2-11) % Eos % (Auto) 0.0 (0-4) % Baso % (Auto) 0.2 (0-2) % Lymph # (Auto) 1.1 L (1.2-4.9) X10*3/uL [place] # (Auto) 0.2 (0.1-1.2) X10*3/uL Eos # (Auto) 0.0 (0.0-0.4) X10*3/uL Baso # (Auto) 0.0 (0.0-0.2) X10*3/uL Abs Immat Gran (auto) 0.03 (0.00-0.03) X10*3/uL Absolute Neuts (auto) 11.8 H (2.0-8.3) x10*3/uL Absolute Nucleated RBC 0.000 (0.0-0.012) X10*3/uL Nucleated RBC % (auto) 0.0 (0.0-0.2) /100WBC Sodium 137 (135-145) mmol/L Potassium 3.7 (3.3-5.1) mmol/L Chloride 101 (96-108) mmol/L Carbon Dioxide 22 (22-29) mmol/L Anion Gap 18 (12-20) BUN 14 (9-16) mg/dL Creatinine 0.79 (0.5-1.4) mg/dL Estim Creat Clear Calc 73.7 Estimated GFR > 60 Random Glucose 154 H (60-115) mg/dL Calcium 10.4 H D (8.4-10.2) mg/dL Total Bilirubin 0.3 (0.0-1.0) mg/dL AST 18 (5-31) U/L ALT 17 (0-31) U/L Alkaline Phosphatase 112 (39-117) U/L Total Protein 8.8 H (6.5-8.0) g/dL Albumin 5.0 (3.5-5.0) g/dL Lipase 53 (8-78) U/L Beta HCG, Quant < 2 mIU/mL Urine Color Yellow Urine Appearance Cloudy Urine pH 6.5 (5.0-9.0) Ur Specific [place] >= 1.030 H (1.005-1.025) Urine Protein 30 (1+) H (Neg-Trace) mg/dL Urine Glucose (UA) 250 H (Negative) mg/dL Urine Ketones >=160 (Negative) mg/dL Urine Blood Negative (Negative) Urine Nitrite Negative (Negative) Ur Leukocyte Esterase Trace H (Negative) Urine RBC 3-5 H (0-2) /HPF Urine WBC 0-5 (0-5) /HPF Ur Squamous Epith Cells 11-20 (0-2) /HPF Urine Bacteria Trace (None Seen) Hyaline Casts 0-2 (0-2) /LPF Urine Opiates Screen POSITIVE H (Not Detect) Ur Buprenorphine Scrn Not Detected (Not Detect) ng/mL Ur Oxycodone Screen Not Detected (Not Detect) ng/mL Urine Methadone Screen Not Detected (Not Detect) ng/mL Urine Fentanyl Screen POSITIVE H (Not Detect) Ur Barbiturates Screen Not Detected (Not Detect) Ur Phencyclidine Scrn Not Detected (Not Detect) Ur Amphetamines Screen Not Detected (Not Detect) U Benzodiazepines Scrn Not Detected (Not Detect) Urine Cocaine Screen Not Detected (Not Detect) U Marijuana (THC) Screen POSITIVE H (Not Detect) Independent Interpretation I performed an independent interpretation of an: EKG Interpretation: Rate: 74 Rhythm: NSR [place]: normal Normal P waves. Normal DEVEN. Normal QRS complex. ST T wave : on JOSELITO, nonspecific ST T wave changes lateral leads qTC: 446 prior studies: no acute ischemia The study has been interpreted contemporaneously by me. . External Record Review External record reviewed: Outpatient record Prescription Management I considered prescription management with: Other Critical Care Time Critical Care Time Critical Care Time: Yes Total Critical Care Time: 60 Attestation: IVF x 2L, review of records, senior financial consultant discussion, [facility]one I attest to this time spent taking care of the patient Discharge Plan Discharge Clinical Impression: Opiate withdrawal, Nausea & vomiting, Acute dehydration Patient Disposition: Home, Self-Care Instructions: Dehydration (ED), Acute Nausea and Vomiting (ED), Opioid Withdrawal (ED) Additional Instructions: stay hydrated drink plenty of fluids return for any worsening symptoms or concerns LAST DOSE OF METHADONE 40MG [facility] 05/26/24 PLEASE GO TO [facility] - [address] - next dose tomorrow for methadone Prescriptions: New ondansetron 4 mg tablet,disintegrating 4 mg PO Q8H PRN (Reason: nausea and vomiting) Qty: 20 0RF Print Language: Lithuanian
[2024-05-26] MEDS: 0.9 % Sodium Chloride 1,000 ML 999 ML IV ×3 (07:32→09:48)
[2024-05-26] MEDS: droPERidol 5 MG/2 ML VIAL 1.25 MG IVPUSH (07:32)
[2024-05-26] MEDS: LORazepam 2 MG/ML VIAL 1 MG IVPUSH (07:33)
[2024-05-26 07:49] LABS: Amphetamine Screen Urine Not Detected (Not Detect); Barbiturates, Urine Not Detected (Not Detect); Benzodiazepines Screen Urine Not Detected (Not Detect); Buprenorphine Scr Not Detected (Not Detect); Cannabinoid Screen Urine POSITIVE (Not Detect); Cocaine Screen Urine Not Detected (Not Detect); Fentanyl, urine POSITIVE (Not Detect); Methadone Screen, Urine Not Detected (Not Detect); Opiate Screen Urine POSITIVE (Not Detect); Oxycodone Screen Urine Not Detected (Not Detect); Phencyclidine Screen Urine Not Detected (Not Detect)
[2024-05-26] MEDS: methADONE HCl 20 MG/2 ML ORAL.CONC 40 MG PO (09:46)
[2024-05-26 10:44] VITALS: BP 147/73; PULSE 74; RESP 18; TEMP 36.9; O2SAT 100
[2024-05-26] MEDS: Acetaminophen 325 MG TABLET 650 MG PO (10:46)
--- NOTE | 2024-05-26 11:30 | MHC.RECOVRN ---
Addendum entered by Halima Todd 05/26/24 11:39: Pts referral sent to [facility]. Original Note: Met with pt in ED22, along with tobacco warehouse manager, after provider request due to opioid withdrawal symptoms and methadone initiation. Pt had presented to the ED for evaluation of vomiting and abdominal pain, reported hx cyclical vomiting syndrome. Pt laying in bed, awake, alert, difficult to engage in conversation. Pt reports using heroin/fentanyl, 2 bundles, [place], daily x years. Denies other substances. Pt reports she had been on methadone in the past, approx 10 years ago. Pt denies recent inpatient treatment for [facility]AY. Provider had ordered 40 mg methadone, pt would like to continue at [facility]. Pt is aware of time and location. Denies questions or concerns for t/w. Discussed with ED provider.
== END 2024-05-26 10:46 | disposition home or self-care (01) ==
PROVIDERS: Emergency Provider Emergency Medicine
DX: F11.23 Opioid dependence with withdrawal (principal); R11.2 Nausea with vomiting, unspecified; E86.0 Dehydration
CPT/HCPCS: 36415; 80053; 80307; 81001; 83690; 84702; 85025; 93005; 96361; 96374; 96375; 99284; J1790; J2060

== ENCOUNTER 2024-11-07 10:44 | Outpatient (REF) | payer MEDICAID, SELFPAY ==
[2024-11-07 14:05] LABS: HBS Num1 0.97 mIU/mL (0-7.99); HBc Num1 0.16 S/CO (0.00-0.79); HBsAGNum1 0.25 S/CO (0.00-0.99); HIV AB/AG Nonreactive (Nonreactive); HIV Num 1 0.06 S/CO (0.00-0.99); Hepatitis A Antibody IgM 0.41 Index (0-0.79); Hepatitis B Core Antibody Nonreactive (Nonreactive); Hepatitis B Surface Antigen Negative (Negative); ~HepC Num1 0.25 S/CO (0.00-0.79); ~Hepatitis A Antibody IgM Nonreactive (Nonreactive); ~Hepatitis B Surface Antibody NONREACTIVE (Nonreactive); ~Hepatitis C Antibody Nonreactive (Nonreactive)
[2024-11-07 14:06] LABS: Syphilis Screen Nonreactive (Nonreactive)
[2024-11-07 14:20] LABS: Alanine Aminotransferase 18 U/L (0-31); Albumin Level 3.9 g/dL (3.5-5.0); Alkaline Phosphatase 102 U/L (39-117); Anion Gap 10 (12-20); Aspartate Amino Transferase 18 U/L (5-31); Bilirubin Total 0.3 mg/dL (0.0-1.0); Blood Urea Nitrogen 12 mg/dL (9-16); Carbon Dioxide 29 mmol/L (22-29); Chloride 107 mmol/L (96-108); Cholesterol 206 mg/dL (<200); Estimated Glomerular Filt Rate > 60; Glucose Random 99 mg/dL (60-115); HDL Cholesterol 55 mg/dL (>40); LDL Cholesterol Calculated 131 mg/dL (<100); Potassium 4.1 mmol/L (3.3-5.1); Sodium 142 mmol/L (135-145); TSH reflex Free T4 0.49 uIU/mL (0.32-4.0); Total Protein 7.3 g/dL (6.5-8.0); Triglycerides 103 mg/dL (<150)
[2024-11-07 14:46] LABS: Reflex LDLD? No
[2024-11-10 14:48] LABS: TS Negative Control Passed; TS Panel A 0; TS Panel B 1; TS Positive Control Passed; TSpotTB Negative (Negative)
== END 2024-11-07 10:45 | disposition home or self-care (01) ==
LOC: HO.HHCL 10:44
PROVIDERS: Visit Provider Internal Medicine
DX: Z00.00 Encounter for general adult medical examination without abnormal findings (principal); H54.3 Unqualified visual loss, both eyes; F17.210 Nicotine dependence, cigarettes, uncomplicated; F11.20 Opioid dependence, uncomplicated
CPT/HCPCS: 36415; 80053; 80061; 84443; 86481; 86704; 86706; 86709; 86780; 86803; 87340; 87389